=== PATIENT | male | born 1985 | race Hispanic/Latino ===

== ENCOUNTER 2018-03-06 23:26 | Emergency (ER) | payer OTHER ==
[2018-03-06] MEDS ORDERED: ACETAMINOPHEN EXTRA STRENGTH 500 MG TABLET ONE (23:49)
[2018-03-07] MEDS ORDERED: KETOROLAC TROMETHAMINE 30MG/ML ONE (00:40)
[2018-03-07] MEDS ORDERED: OSELTAMIVIR PHOSPHATE 75 MG CAP ONE (01:16)
[2018-03-07] MEDS ORDERED: CEFTRIAXONE SODIUM 1 GM ONE (01:49)
[2018-03-07] MEDS ORDERED: LIDOCAINE HCL-MPF 1% 2ML VIAL ONE (01:49)
== END 2018-03-07 01:59 | disposition home or self-care (01) ==
LOC: EDH 23:26
DX: J09.X2 Influenza due to identified novel influenza A virus with other respiratory manifestations (principal)
CPT/HCPCS: 71046; 87804 ×2; 96372 ×2; 99285; J0696; J1885; J3490